=== PATIENT | male | born 1935 | race Caucasian/White ===

== ENCOUNTER 2024-07-13 16:46 | Inpatient (IN) | payer OTHER, SELFPAY ==
[2024-07-13] VITALS (14 sets, daily range): BP systolic 85–125; BP diastolic 53–79; BMI 21.0; BMI 21.2
[2024-07-13 13:22] LABS: Glucose - Point of Care 191 mg/dl (70-99)
[2024-07-13 13:48] LABS: COVID-19 Antigen Negative (Negative)
[2024-07-13 13:49] LABS: % Basophils 0.6 % (0-2); % Eosinophils 0.2 % (0-6); % Immature Granulocytes 0.6 % (0-0.5); % Lymphocytes 7.1 % (20.5-51.1); % Monocytes 6.5 % (1.7-9.3); Absolute Basophils 0.1 10^3/uL (0-0.2); Absolute Immature Granulocytes 0.1 10^3/uL (0-0.05); Absolute Lymphocytes 0.8 10^3/uL (1.2-3.4); Absolute Monocytes 0.8 10^3/uL (0.1-0.6); Absolute Neutrophils 9.9 10^3/uL (1.4-6.5); Hematocrit 36.1 % (39.0-52.0); Mean Corp Hgb Conc. 33.2 g/dL (33.0-37.0); Mean Corpuscular Hgb 26.8 pg (27.0-31.0); Mean Corpuscular Volume 80.8 fL (80.0-94.0); Mean Platelet Volume 10.7 fL (7.4-10.4); Nucleated Red Blood Cells % 0 % (-); Platelet Count 232 10^3/uL (130-400); Red Blood Cell Count 4.47 10^6/uL (4.70-6.10); Red Cell Dist. Width 14.7 % (11.5-14.5); White Blood Cell Count 11.7 10^3/uL (4.8-10.8)
--- NOTE | 2024-07-13 13:53 | ED.GENMED ---
History of Present Illness
General
Chief Complaint: Seizure
Time Seen by Provider: 07/13/24 13:26
History of Present Illness
History of Present Illness:
89-year-old male with history of dementia, hypertension presenting to the emergency department for seizure. Patient arrives with daughter who reports that patient recently went to [facility] yesterday for an x-ray because he has been
having back pain. While in x-ray, had a seizure so was brought to the emergency department. At that time he was found to have a brain mass that was increased in size from 2021. Patient had been admitted to the hospital, also found to be
COVID-positive. Daughter notes that patient was boarding for too long, she was disgruntled with hospital stay, so signed him out AMA and drove him here. Patient had a seizure en route, she called 911, however patient refused ambulance, so she
drove him here. Patient had a seizure while in triage.. Patient postictal, limited historian.
Phy Exam
Physical Exam
Physical Exam:
General: no clinical signs of dehydration, nontoxic and in no acute distress
HEENT: protecting airway
Neck: appears supple
CV: Normal heart rate, regular rhythm
Resp: No accessory muscle use, no increased work of breathing, lungs clear to auscultation bilaterally
Abd: Soft and non-distended, no tenderness to palpation
Extremities: No deformities, no swelling, no erythema
Neuro: alert, coming to, moving all extremities equally
: deferred
Rectal: deferred
Psych: Normal affect
Skin: Intact
Course
Orders/Labs/Results
Orders:
Orders
07/13/24
Electrocardiogram (*1) Stat
Comment: DONE EMR
07/13/24 13:27
CT Head W/o Iv Contrast Urgent
Comment:
Reason For Exam: seizure, hx of brain mass
CR Chest - 2 Views Urgent
Comment:
Reason For Exam: suspected pneumonia
07/13/24 13:29
COVID-19 Antigen Urgent
Source: Nasal Swab
Complete Blood Count/With Diff Urgent
Comprehensive Metabolic Panel Urgent
PTT Urgent
Prothrombin Time Urgent
Troponin I Urgent
07/13/24 13:37
0.9% Sodium Chloride 1000 ml [Nss] 1,000 ml IV BOLUS
07/13/24 13:45
Levetiracetam Injectable [Keppra] 1,000 mg IV NOW STA
07/13/24 13:52
Lorazepam [Ativan] 2 mg IV NOW STA
07/13/24 14:07
0.9% Sodium Chloride [Nss (Preservative Free)] 1 ml IV NOW STA
07/13/24 15:15
Restraints - Violent As Directed
Restraint Type-: Soft Limb-4 point/4 rails
Apply From (date): 07/13/24
Apply from (time): 13:40
Remove (date): 07/13/24
Remove (time): 19:15
07/13/24 15:16
1:1 Observation - Suicide/ Violent Behavior As Directed
Abnormal Lab Results
07/13/24 07/13/24
13:21 13:29
WBC 11.7 H 10^3/uL
(4.8-10.8)
RBC 4.47 L 10^6/uL
(4.70-6.10)
Hgb 12.0 L g/dL
(13.0-18.0)
Hct 36.1 L %
(39.0-52.0)
MCH 26.8 L pg
(27.0-31.0)
RDW 14.7 H %
(11.5-14.5)
MPV 10.7 H fL
(7.4-10.4)
Abs Immat Gran (auto) 0.1 H 10^3/uL
(0-0.05)
Absolute Neuts (auto) 9.9 H 10^3/uL
(1.4-6.5)
Absolute Lymphs (auto) 0.8 L 10^3/uL
(1.2-3.4)
Absolute Monos (auto) 0.8 H 10^3/uL
(0.1-0.6)
Immature Gran % 0.6 H %
(0-0.5)
Neutrophils % 85.0 H %
(42.2-75.2)
Lymphocytes % 7.1 L %
(20.5-51.1)
PT 15.2 H Sec
(11.4-14.6)
Glucose 169 H mg/dl
(70-99)
POC Glucose 191 H mg/dl
(70-99)
07/13/24 13:29
07/13/24 13:29
Vital Signs
Initial and Last Documented VS:
Initial Vital Signs
Temp Pulse Resp BP Pulse Ox
98.1 F 61 10 104/69 94
07/13/24 13:19 07/13/24 13:19 07/13/24 13:19 07/13/24 13:19 07/13/24 13:19
Last Documented Vital Signs
Temp Pulse Resp BP Pulse Ox
98.1 F 61 29 104/59 93
07/13/24 13:19 07/13/24 15:15 07/13/24 15:15 07/13/24 15:15 07/13/24 15:15
MDM/Problems Addressed
MDM/Problems Addressed:
89-year-old male with history of dementia presenting for seizure and concern of a brain mass. Vital signs on arrival significant for low blood pressure.
On exam, patient is coming to, seizure prior to arrival. Per daughter, recent hospitalization yesterday at [employer] for which he was admitted, signed out AMA for seizure with brain mass and COVID. Suspected source of patient's seizure is
brain mass. For this reason we will repeat workup including CT brain, laboratory analysis, COVID swab, chest x-ray imaging. Will administer Keppra for seizure prophylaxis.
14:00 - Patient extremely agitated, grabbing at staff, cursing. Unsuccessful verbal de-escalation. Will administer Ativan
15:40 -CT shows s a mildly heterogeneous focus with associated calcifications along the anteromedial right temporal lobe measuring 1.9 x 1.6 x 1.6 cm which likely represents a lesion and is not definitely extra-axial in location. In discussion with
neurosurgery, advising MRI. Remains hemodynamically stable.
*EKG
Interpreted by ED Provider?: Yes
EKG Intrepretation Date: 07/13/24
EKG Intrepretation Time: 13:57
Interpretation: normal
Comparison EKG: no comparison EKG present
Heart Rate: 74
Rate: normal
Rhythm: sinus
[place]: normal axis
Interval: normal interval
QRS Pattern: normal QRS
Ischemia: no ischemia
*Critical Care Note
Total Time (30-74mins, 75-104mins- exclusive of procedures): 37
comment:
The high probability of a clinically significant, sudden or life threatening deterioration of the neurologic system(s) required my full and direct attention, intervention and personal management. The aggregate critical care time was 37 minutes. This
time is in addition to time spent performing reported procedures but includes the following:
[x] Data Review and interpretation
[x] Patient assessment and monitoring of vital signs
[x] Documentation
[x] Medication orders and management
ED Attending Note
-
Portions of this chart may have been created with voice recognition software.� Occasional wrong word or��sound alike� substitutions may have occurred due to the inherent limitations of voice recognition software.
Discharge Plan
Departure
Patient Disposition: Admit
Date of Disposition: 07/13/24
Time of Disposition: 15:47
Presentation/result/management discussed w/ accepting MD/DO: Hospitalist
Patient with high blood pressure during this ER visit?: No
Condition: Fair
Discharge Problem:
Seizure, Right temporal lobe mass
Referrals:
Doris Mohan DO [Family Provider] -
Interventions
Interventions:
*Risk Screen - Suicide Last Done: 07/13/24 13:19
*General Assessment Last Done: 07/13/24 13:19
*Neglect/Abuse Screening Last Done: 07/13/24 13:19
ED- Fall Risk Assessment Last Done: 07/13/24 13:35
ED- Cardiac Assessment Last Done: 07/13/24 13:35
ED- Neurological Assessment Last Done: 07/13/24 13:35
ED- Pulmonary Assessment Last Done: 07/13/24 13:35
Discharge Date and Time
Print Language: CAMEROONIAN
[2024-07-13 13:56] LABS: ALT (SGPT) 16 U/L (0-50); AST (SGOT) 31 U/L (17-59); Albumin 4.1 g/dl (3.5-5.0); Alkaline Phosphatase 74 U/L (38-126); Blood Urea Nitrogen 18 mg/dl (9-20); Calcium 9.1 mg/dl (8.4-10.2); Carbon Dioxide 22 mmol/L (22-30); Chloride 102 mmol/L (98-107); Estimated Creatinine Clearance 47 ml/min; Glucose 169 mg/dl (70-99); Sodium 138 mmol/L (135-145); Total Bilirubin 0.5 mg/dl (0.2-1.3); Total Protein 6.9 g/dl (6.3-8.2); eGFR > 60.00
[2024-07-13 14:07] LABS: PT 15.2 Sec (11.4-14.6)
[2024-07-13 14:08] LABS: APTT 31.5 Sec (23.4-35.0); Troponin I 0.014 ng/ml
[2024-07-13] MEDS: NSS 1000 IV (14:12)
[2024-07-13] MEDS: ATIVAN 2 MG IV (14:12)
[2024-07-13] MEDS: KEPPRA 1000 MG IV ×2 (14:13→20:42)
--- NOTE | 2024-07-13 16:28 | HPS.HSE ---
Family Physician
-
Family Physician: Doris Mohan DO
Chief Complaint
-
Seizure
History of Present Illness
Patient is an 89 y/o male past medical history of coronary artery disease, and cognitive impairment who presents following a seizure. Patient is currently sedated following Ativan given in the emergency department. History is obtained from
patient's daughter at the bedside. Patient was at [facility] yesterday to obtain an outpatient x-ray where he had an apparent seizure in the waiting room. He was brought to [place] ED and work-up revealed a brain mass. Plan was
for him to get an MRI but patient's daughter signed him out AMA and brought him here. Patient had an other seizure en route to [facility], and had another seizure while in triage. Daughter denies any prior history of seizure.
Medical History
Past Medical History
Past Medical History: Reports Other
Additional Past Medical History:
Coronary Artery Disease s/p Stent
Essential Hypertension
Hyperlipidemia
Cognitive Impairment
Past Surgical History: Reports Other
Additional Past Surgical History:
Cardiac Stent
Social History
Unable to obtain full social history at this time due to: Patient Non-verbal
Family History
Family History: Unable to Obtain
Allergies / Home Medications
Allergies reflects when Allergies were last updated in [facility].
Home Medications with original date entered in [facility]
Allergy/Medication List:
Allergies
Allergy/AdvReac Type Severity Reaction Status Date / Time
No Known Allergies Allergy Unverified 07/13/24 14:05
Home Medications
aspirin 81 mg tablet,delayed release 81 mg PO DAILY 07/13/24
donepezil 10 mg tablet 10 mg PO HS 07/13/24
isosorbide mononitrate 30 mg tablet,extended release 24 hr 30 mg PO DAILY 07/13/24
metoprolol succinate 25 mg tablet,extended release 24 hr 25 mg PO DAILY 07/13/24
simvastatin 40 mg tablet 40 mg PO HS 07/13/24
Review of Systems
-
Unable to obtain full review of systems at this time due to: Patient Non-verbal
Physical Exam
Vital Signs
Vital Signs
Temp Pulse Resp BP Pulse Ox
98.1 F 61 29 104/59 93
07/13/24 13:19 07/13/24 15:15 07/13/24 15:15 07/13/24 15:15 07/13/24 15:15
Physical Exam
General: Well Developed and Well Nourished
HEENT: NormoCephalic, Moist mucous membranes and Atraumatic
Respiratory: Clear and Non Labored Respirations
Cardiac: S1/S2 and Regular Rhythm
GI: Soft and Non Tender
Musculoskeletal: No Clubbing, No Cyanosis and No Edema
Skin: Warm and Dry
Neuro: Sedated (Patient given 2mg Ativan in ED and he is now unable to participate in neurologic evaluation)
Psych: Calm
Laboratory Results
-
07/13/24 13:29
07/13/24 13:29
Laboratory Results
PT 15.2 Sec (11.4-14.6) H 07/13/24 13:29
INR 1.20 07/13/24 13:29
APTT 31.5 Sec (23.4-35.0) 07/13/24 13:29
Total Bilirubin 0.5 mg/dl (0.2-1.3) 07/13/24 13:29
AST 31 U/L (17-59) 07/13/24 13:29
ALT 16 U/L (0-50) 07/13/24 13:29
Alkaline Phosphatase 74 U/L (38-126) 07/13/24 13:29
Troponin I 0.014 ng/ml 07/13/24 13:[address]:
There is a 1.5 x 1.2 x 1.4 cm partially calcified, extra-axial lesion along the right sphenoid as well as a 1.5 x 0.6 cm sessile, partially calcified extra-axial lesion along the right parietal which likely represent meningiomas.
There is a mildly heterogeneous focus with associated calcifications along the anteromedial right temporal lobe measuring 1.9 x 1.6 x 1.6 cm which likely represents a lesion and is not definitely extra-axial in location. Recommend neurosurgical
evaluation and MRI for further evaluation if not previously evaluated.
Data Reviewed
-
CT Scan: Report Reviewed by me
Lab Data: Labs Reviewed by me
Impression/Plan
-
Provoked Seizure secondary to Brain Mass
-Consult Neurology and Neurosurgery
-Check Brain MRI with and without contrast
-Continue Keppra 1000mg BID
-Continue Seizure Precautions
-Continue NPO for safety until fully awake
Coronary Artery Disease s/p Stent
-Resume aspirin and nitrates when able
Essential Hypertension
-Metoprolol on hold
-Monitor BP
Hyperlipidemia
-Resume statin when able
Cognitive Impairment
-Monitor for mood/behavior changes during hospitalization
DVT proph: SCDs
Code Status: Full Code
--- NOTE | 2024-07-13 16:41 | W.PN.UPDATE ---
Update Note
Progress Note Update
This note serves as an addendum to the H&P by coremaking machine operator UCHE Missy NASSAR
HPI
89M [facility] Res HX Dementia HX Brain mass with increased size since 2021 , had Sz yesterday while at XR for back pain at [facility] , ended up at [facility] had HCT . When [facility] ER comapred with HCT from [facility] in 2021
report Brain mass with increased size Sz . daughter felt too long wait at [facility] for Brain MRI Daughter signed out AMA from [facility] pat[facility] o ER. While en route develoved another episode of Sz ( suddeny went limp
and unresponsive /change if level of conciousness) She stopped roadside , called 911 and EMS transport patient to ER.
VSS stable
Agitated while placing F cath requied IV Ativan 2 mg
Remain post ictal or sedated S/P IV Ativan for presumed Sz
Protecting AW
Symmetric movements of both LExs
Laboratory Tests
07/13/24
13:29
WBC 11.7 H
Hgb 12.0 L
Creatinine 1.0
eGFR > 60.00
Glucose 169 H
Troponin I 0.014
SARS-CoV-2 Antigen Negative
Unenhanced HCT
mildly heterogeneous focus with associated calcifications along the anteromedial right temporal lobe measuring 1.9 x 1.6 x 1.6 cm which likely represents a lesion and is not definitely extra-axial in location.
ASSESSMENT & PLAN
No prior admission or ER visit to
New onset provoked Sz asso with post ictal agitation
Underlying Brain mass along the anteromedial right temporal lobe
Sedated s/p IV ativan
Protecting AW
- agree with IV Keppra 1000 mg BID
- IV Ativan PRN for break thru Sz
- NPO and IVF for aspiration precaution
- Neuro Surg indicate to get Santy MRI and observe at
- Neuro consult for provoked Sz
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
HX CAD with stents
- Holding ASA, Metoprolol and IMN
HLD
- Hold Statin due to depressed mentation
DVT Px: SCD
Full code
IP TLM
--- NOTE | 2024-07-13 17:38 | CON.NEURO ---
Consultation
Order
Date of Consultation: 07/13/24
Requesting Provider: Alessandra Napoles PA-C
Reason for Consult: seizures
HPI: The patient's daughter reports that Mr. Lockett has been experiencing back pain for approximately three weeks. The pain was significant enough for the patient to visit his primary care physician, who ordered an x-ray. During the wait for the
x-ray, the patient experienced an episode described as agitation, groaning, and drooling. The patient was subsequently taken to the emergency room.
He was seen at [facility] ER and was found increase in size previously known calcified mass lesion, compared to March 2022. The family decided to transfer his care and the patient experienced another seizure-like episode in the car on the way to the current
visit.
The patient's daughter also reports that her father has been forgetful. He has had intermitted behavioral changes(can be belligerent) over the last several months and has been taking donepezil. In the past month and a half, she has occasionally not
recognized his daughter.
ER VS: 104/69- 85/54, 61, afebrile
EKG: sinus arrhythmia, QTc Int : 472 ms
PDMP: none
Labs: gluc 191, WBC 11.7, Hb 12.0, normal Na, Cr
MAR: Lorazepam 2 mg IV at 14:12, Keppra 1g IV once
CT head-1.5 x 1.2 x 1.4 cm partially calcified, extra-axial lesion along the right sphenoid as well as a 1.5 x 0.6 cm sessile, partially calcified extra-axial lesion along the right parietal which likely represent meningiomas.
There is a mildly heterogeneous focus with associated calcifications along the anteromedial right temporal lobe measuring 1.9 x 1.6 x 1.6 cm which likely represents a lesion and is not definitely extra-axial in location.
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
PSH: PTCI, hernia repair
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
FH:mother-stroke; brother-brain tumor
All:NKDA
ROS: Positive for back pain, seizure
General: Well developed. In no acute distress.
Cardio: Regular rate. Extremities are without cyanosis or edema.
Neuro:
Mental Status: Lethargic, moans to sternal rub. Does not follow requests.
Cranial Nerves: Resists eye opening. Orthophoric primary gaze. Pupils are equally round and reactive to light. Face symmetric.
Motor: Increased motor tone in UE/LE, moves all limbs within balance. No clonus.
Reflexes: Plantar response�mute BL
Sensory: Unable to assess due to mental status
Coordination: No tremors or myoclonic movements
Gait: deferred
Assessment and Plan:
I. Seizure cluster.
II. Multifactorial encephalopathy(post ictal, toxic, neurodegenerative)
III. 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
-Telemetry monitoring
-Seizure precaution
-Continue Keppra 500 mg twice daily
-Please check magnesium, CK, urinalysis
-Brain MRI with cardiology
-Routine EEG
-The case was discussed with patient's daughter
I personally reviewed all radiology and labs along with past medical records pertinent to current medical problems. Total time spent in patient care is 60 minutes.
Thank you for allowing us to participate in the care of this patient. We will continue to follow. Please do not hesitate to contact us with any questions or concerns.
Subjective/Objective
Subjective Data
Date of Service: July 13, 2024
Objective Data
Vital Signs
Temp Pulse Resp BP Pulse Ox
36.7 C 60 18 104/64 94
07/13/24 13:19 07/13/24 15:45 07/13/24 15:45 07/13/24 15:45 07/13/24 15:45
Lab Results
07/13/24 13:29
07/13/24 13:29
PT 15.2 Sec (11.4-14.6) H 07/13/24 13:29
INR 1.20 07/13/24 13:29
APTT 31.5 Sec (23.4-35.0) 07/13/24 13:29
Sodium 138 mmol/L (135-145) 07/13/24 13:29
Potassium 4.0 mmol/L (3.5-5.1) 07/13/24 13:
BUN 18 mg/dl (9-20) 07/13/24 13:29
Glucose 169 mg/dl (70-99) H 07/13/24 13:29
Calcium 9.1 mg/dl (8.4-10.2) 07/13/24 13:
Patient Allergies
No Known Allergies Allergy (Unverified 07/13/24 14:05)
Medications
-
Home Medications
�Medication �Instructions �Recorded
aspirin 81 mg tablet,delayed 81 mg PO DAILY 07/13/24
release
donepezil 10 mg tablet 10 mg PO HS 07/13/24
isosorbide mononitrate 30 mg 30 mg PO DAILY 07/13/24
tablet,extended release 24 hr
metoprolol succinate 25 mg 25 mg PO DAILY 07/13/24
tablet,extended release 24 hr
simvastatin 40 mg tablet 40 mg PO HS 07/13/24
Vital Signs and Labs
-
Vital Signs and Labs:
Vital Signs
Temp Pulse Resp BP Pulse Ox
36.7 C 60 18 104/64 94
07/13/24 13:19 07/13/24 15:45 07/13/24 15:45 07/13/24 15:45 07/13/24 15:45
Lab Results
07/13/24 13:29
07/13/24 13:29
PT 15.2 Sec (11.4-14.6) H 07/13/24 13:29
INR 1.20 07/13/24 13:29
APTT 31.5 Sec (23.4-35.0) 07/13/24 13:29
Sodium 138 mmol/L (135-145) 07/13/24 13:29
Potassium 4.0 mmol/L (3.5-5.1) 07/13/24 13:29
BUN 18 mg/dl (9-20) 07/13/24 13:29
Glucose 169 mg/dl (70-99) H 07/13/24 13:29
Calcium 9.1 mg/dl (8.4-10.2) 07/13/24 13:29
Medications
-
Medications:
Generic Name Dose Route Start Last Admin
Trade Name Freq PRN Reason Stop Dose Admin
Acetaminophen 650 mg 07/13/24 17:44
Acetaminophen 325 Mg Tablet PO 08/10/24 17:43
Q4HPRN PRN
mild pain/ fever>100.5F
Dextrose/Sodium Chloride 1,000 mls @ 80 mls/hr 07/13/24 17:44
D5/0.45%Nacl IV 07/14/24 06:13
.[id number] JENNIFER
Levetiracetam 1,000 mg 07/13/24 20:00
Levetiracetam (100 Mg/Ml) 500 Mg/5 Ml Vial IV 08/10/24 19:59
Q12 JENNIFER
Lorazepam 1 mg 07/13/24 17:44
Lorazepam 2 Mg/Ml Vial IV 08/10/24 17:43
Q4HPRN PRN
seizure
Sodium Chloride 0 flush 07/13/24 18:00
Sodium Chloride 0.9% (Flush) Syringe IV 08/10/24 17:59
PER PROTOCOL JENNIFER
Sodium Chloride 0.5 ml 07/13/24 17:48
Nss (Pf) 10 Ml Vial For Ativan 1 Mg Dose IV 08/10/24 17:47
Q4HPRN PRN
IV LORAZEPAM DILUTION
Home Medications
-
Home Medications
aspirin 81 mg tablet,delayed release 81 mg PO DAILY 07/13/24
donepezil 10 mg tablet 10 mg PO HS 07/13/24
isosorbide mononitrate 30 mg tablet,extended release 24 hr 30 mg PO DAILY 07/13/24
metoprolol succinate 25 mg tablet,extended release 24 hr 25 mg PO DAILY 07/13/24
simvastatin 40 mg tablet 40 mg PO HS 07/13/24
[2024-07-13] MEDS: D5/0.45%NACL 1000 IV (18:18)
[2024-07-13 20:16] LABS: Creatine Phosphokinase 297 U/L (55-170); Magnesium 1.9 mg/dl (1.6-2.3)
--- NOTE | 2024-07-13 20:30 | PTCARENOTE ---
Pt received from ED at 1930. Pt A&OX2, drowsy, VSS, and daughter present in room able to answer admission questions for pt. Pt presented with bloody skin tear on R forearm, Kerlix and foam allied. Pt on seizure precautions, pillows and padding
applied to bed rails. Pt and daughter informed on importance to use call wang, pt and daughter relayed understanding and cooperation. Will continue with current plan of care.
[2024-07-14 03:32] VITALS: BP 141/59
[2024-07-14 05:59] VITALS: BMI 20.7
[2024-07-14 07:50] VITALS: BP 140/83
[2024-07-14 08:23] LABS: Hemoglobin 10.2 g/dL (13.0-18.0); Mean Corp Hgb Conc. 32.9 g/dL (33.0-37.0); Mean Corpuscular Hgb 26.6 pg (27.0-31.0); Mean Corpuscular Volume 80.7 fL (80.0-94.0); Mean Platelet Volume 11.4 fL (7.4-10.4); Platelet Count 194 10^3/uL (130-400); Red Blood Cell Count 3.84 10^6/uL (4.70-6.10); Red Cell Dist. Width 14.9 % (11.5-14.5); White Blood Cell Count 8.4 10^3/uL (4.8-10.8)
[2024-07-14] MEDS: KEPPRA 1000 MG IV ×2 (09:03→19:26)
[2024-07-14 09:07] LABS: Blood Urea Nitrogen 19 mg/dl (9-20); Calcium 8.8 mg/dl (8.4-10.2); Carbon Dioxide 20 mmol/L (22-30); Chloride 106 mmol/L (98-107); Estimated Creatinine Clearance 56 ml/min; Glucose 85 mg/dl (70-99); Potassium 3.6 mmol/L (3.5-5.1); Sodium 140 mmol/L (135-145); eGFR > 60.00
[2024-07-14 09:09] VITALS: BP 140/83; PULSE 66; O2SAT 93; O2SAT 95
--- NOTE | 2024-07-14 10:14 | W.PN.NEURO.1 ---
Today's Communication / Plan
-
.
Subjective/Objective
Subjective Data
Date of Service: July 14, 2024
Neurology follow-up note.
No acute events overnight. Afebrile. No recurrent reported or documented seizures.
Brain MRI-pending.
Labs: CK 297, mg 1.9
Routine EEG(07/14/2024)-generalized slowing, no epileptiform abnormalities.
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
PSH: PTCI, hernia repair
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
FH:mother-stroke; brother-brain tumor
All:NKDA
ROS: Positive for back pain, seizure
General: Well developed. In no acute distress.
Cardio: Regular rate. Extremities are without cyanosis or edema.
Neuro:
Mental Status: Stuporous, opens eyes briefly. Does not attend, oriented to name only. Does not follow requests.
Cranial Nerves: Resists eye opening. Orthophoric primary gaze. Pupils are equally round and reactive to light. Face symmetric.
Motor: Increased motor tone in UE/LE, moves all limbs within bedplane. No clonus.
Reflexes: Plantar response�mute BL
Coordination: No tremors or myoclonic movements
Gait: deferred
Assessment and Plan:
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
II. Multifactorial encephalopathy(post ictal, toxic, neurodegenerative), minimally improved
III. 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
-Telemetry monitoring
-Seizure precaution
-Continue Keppra 500 mg twice daily
-Please check urinalysis
-Brain MRI with felice
I personally reviewed all radiology and labs along with past medical records pertinent to current medical problems. Total time spent in patient care is 40 minutes.
Thank you for allowing us to participate in the care of this patient. We will continue to follow. Please do not hesitate to contact us with any questions or concerns.
Objective Data
Vital Signs
Temp Pulse Resp BP Pulse Ox
36.4 C 56 18 140/83 95
07/14/24 07:50 07/14/24 07:50 07/14/24 07:50 07/14/24 07:50 07/14/24 07:50
Lab Results
07/14/24 07:12
07/14/24 07:12
PT 15.2 Sec (11.4-14.6) H 07/13/24 13:29
INR 1.20 07/13/24 13:29
APTT 31.5 Sec (23.4-35.0) 07/13/24 13:29
Sodium 140 mmol/L (135-145) 07/14/24 07:12
Potassium 3.6 mmol/L (3.5-5.1) 07/14/24 07:12
BUN 19 mg/dl (9-20) 07/14/24 07:12
Glucose 85 mg/dl (70-99) 07/14/24 07:12
Calcium 8.8 mg/dl (8.4-10.2) 07/14/24 07:12
Patient Allergies
No Known Allergies Allergy (Unverified 07/13/24 14:05)
Vital Signs and Labs
-
Vital Signs and Labs:
Vital Signs
Temp Pulse Resp BP Pulse Ox
36.4 C 56 18 140/83 95
07/14/24 07:50 07/14/24 07:50 07/14/24 07:50 07/14/24 07:50 07/14/24 07:50
Lab Results
07/14/24 07:12
07/14/24 07:12
PT 15.2 Sec (11.4-14.6) H 07/13/24 13:29
INR 1.20 07/13/24 13:29
APTT 31.5 Sec (23.4-35.0) 07/13/24 13:29
Sodium 140 mmol/L (135-145) 07/14/24 07:12
Potassium 3.6 mmol/L (3.5-5.1) 07/14/24 07:12
BUN 19 mg/dl (9-20) 07/14/24 07:12
Glucose 85 mg/dl (70-99) 07/14/24 07:12
Calcium 8.8 mg/dl (8.4-10.2) 07/14/24 07:12
Medications
-
Medications:
Generic Name Dose Route Start Last Admin
Trade Name Freq PRN Reason Stop Dose Admin
Acetaminophen 650 mg 07/13/24 17:44
Acetaminophen 325 Mg Tablet PO 08/10/24 17:43
Q4HPRN PRN
mild pain/ fever>100.5F
Levetiracetam 1,000 mg 07/13/24 20:00 07/14/24 09:03
Levetiracetam (100 Mg/Ml) 500 Mg/5 Ml Vial IV 08/10/24 19:59 1,000 mg
Q12 JENNIFER Administration
Lorazepam 1 mg 07/13/24 17:44
Lorazepam 2 Mg/Ml Vial IV 08/10/24 17:43
Q4HPRN PRN
seizure
Sodium Chloride 0 flush 07/13/24 18:00
Sodium Chloride 0.9% (Flush) Syringe IV 08/10/24 17:59
PER PROTOCOL JENNIFER
Sodium Chloride 0.5 ml 07/13/24 17:48
Nss (Pf) 10 Ml Vial For Ativan 1 Mg Dose IV 08/10/24 17:47
Q4HPRN PRN
IV LORAZEPAM DILUTION
Home Medications
-
Home Medications
aspirin 81 mg tablet,delayed release 81 mg PO DAILY Blood Clot Prevention/Tx 07/13/24
donepezil 10 mg tablet 10 mg PO HS Mental Health/Anxiety 07/13/24
isosorbide mononitrate 30 mg tablet,extended release 24 hr 30 mg PO DAILY Blood Pressure 07/13/24
metoprolol succinate 25 mg tablet,extended release 24 hr 25 mg PO DAILY Heart Disease/Condition 07/13/24
simvastatin 40 mg tablet 40 mg PO HS High Cholesterol 07/13/24
--- NOTE | 2024-07-14 10:29 | EEGC.RPT ---
Continuous EEG Report
Report
�TECHNICAL REMARKS:��This is a technically satisfactory eighteen channel record employing 21 disc electrodes applied according to a measured international 10-20 electrode placement system.��There were no significant technical difficulties.��The
study was done on a [employer] System.
�
CLINICAL HISTORY: This is an 89 year man with encephalopathy.� This study was requested to look for epileptiform abnormalities.
MEDS: Bony
STUDY DURATION:�27 min,�39 secs
REPORT: �At the onset of the EEG, the patient is in altered mental status. The background activity consists of 5-6.5 Hz, impersistent, posteriorly dominant, moderate amplitude, symmetric, and rhythmic activity. Continuous generalized, 2-3 Hz, 30-50
uV at times sharply contoured polymorphic delta activity was seen.� Stepwise intermittent photic stimulation did not induce additional abnormalities. Hyperventilation was not performed. Drowsiness is characterized by low amplitude mixed frequency
activity, decreased eye blinking, and muscle artifact. No epileptiform activity was seen.
�
IMPRESSION: �This is an abnormal EEG recorded in altered mental status due to a moderate-to severe generalized slowing. This finding indicates diffuse cerebral dysfunction, nonspecific in terms of etiology.�
[2024-07-14 12:31] VITALS: BP 144/84
--- NOTE | 2024-07-14 12:58 | CM ---
Patient sleepy, daughter, Ilda at bedside, per patient's daughter patient lives at [facility] on the 2nd floor, building has an elevator, patient was independent with adl's and ambulation, patient would go to dining room for
meals, per daughter, patient's spouse has memory deficits and requires help from patient, patient uses not use any dme.
PCP: Doris Mohan
Pharmacy: [facility] [phone]
Plan; To follow with patient progress.
[2024-07-14 13:23] LABS: Urine Albumin Negative (Neg - Trace); Urine Bilirubin Negative (Negative); Urine Character Clear (Clear); Urine Color Yellow; Urine Glucose Negative (Negative); Urine Ketone Trace (Negative); Urine Leukocyte Negative (Negative); Urine Nitrite Negative (Negative); Urine Occult Blood Negative (Negative); Urine Urobilinogen Negative (Neg - 1+)
--- NOTE | 2024-07-14 14:00 | PTOTSP ---
Speech Therapy Swallowing Assessment
Elevated risk for aspiration given lethargic state. One instance of prolonged coughing at end of session likely related to large volume sip that patient then swished in mouth and segmented into multiple swallows. Remaining trials of thin liquids
tolerated without overt signs of aspiration.
Recommend
1. Begin Regular solids and thin liquids.
2. Meds whole in applesauce.
3. Aspiration Precautions.
4. Will monitor patient tolerance and determine need for VSE and/or diet modifications
--- NOTE | 2024-07-14 15:31 | W.PN.HOSP.TC ---
Today's Communication/Plan
-
See plan
Assessment / Plan
Assessment / Plan
Impression:
Focal epilepsy.
Protracted encephalopathy, suspect postictal state.
Right parietal and temporal mass probably meningioma.
Conditions prior to admission:
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
CAD with history of stents.
Dyslipidemia.
Plan:
Focal epilepsy with multiple seizures over the last 24 hours.
Protracted encephalopathy suspect postictal state
EEG with diffuse slowing with no evidence of epileptic activity.
MRI of the brain:
No acute intracranial infarction.
There are 4 extra-axial, enhancing lesions which are likely meningiomas. The largest measures 3.1 x 2.9 x 1.8 cm along the right anterior temporal fossa and demonstrates mass effect on adjacent anterior right temporal lobe. The additional lesions do
not demonstrate significant mass effect.
Initiated on Keppra dose to be adjusted as per neurology
Continue seizure precautions
Neurosurgery/neurology consultation
Afebrile and hemodynamically stable with no clinical evidence of infection.
Chest x-ray with no abnormalities.
Urinalysis not suggestive of infection.
Speech and swallow evaluation recommends regular diet with thin liquids with aspiration precautions. Monitor closely.
CAD
Continue metoprolol, Imdur.
Holding aspirin acutely.
Dyslipidemia on statin
Dementia Alzheimer's type. 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
Physical therapy assessment as mental status allows.
Anticipated Discharge: 24 - 48 hours
Subjective/Interval History
-
Date of Service: July 14, 2024
Objective Data
-
Labs:
Laboratory Results
07/14/24
07:12
WBC 8.4
Hgb 10.2 L
Hct 31.0 L
Plt Count 194
Sodium 140
Potassium 3.6
Chloride 106
Carbon Dioxide 20 L
BUN 19
Creatinine 0.8
Glucose 85
Calcium 8.8
Vital Signs:
Vital Signs
Temp Pulse Resp BP Pulse Ox
98.5 F 52 18 144/84 95
07/14/24 12:31 07/14/24 12:31 07/14/24 12:31 07/14/24 12:31 07/14/24 12:31
I&O
07/13/24 07/14/24 07/15/24
06:59 06:59 06:59
Intake Total 500 / 500
Balance 500 / 500
Physical Exam
-
General: Well Developed and No Apparent Distress
HEENT: Normocephalic, Atraumatic and Moist Mucous Membranes
Respiratory: Clear to Auscultation
Cardiac: Regular Rhythm and S1/S2; Negative Murmur, Rub or Gallop
GI: Soft, Nontender, Nondistended and Normal Bowel Sounds; Negative Organomegaly
Rectal: Deferred by Provider
Musculoskeletal: No Clubbing, No Cyanosis and No Edema
Skin: Negative Rash
Neuro: Nonfocal/Grossly Intact and Other (Lethargic, although awakes with conversation and following simple commands.)
[2024-07-14 15:39] VITALS: BP 163/87
[2024-07-14 19:56] VITALS: BP 134/74
[2024-07-15 00:13] VITALS: BP 131/74
[2024-07-15 04:20] VITALS: BP 116/66
[2024-07-15 07:40] VITALS: BP 124/77
[2024-07-15 08:12] LABS: % Eosinophils 2.3 % (0-6); % Immature Granulocytes 0.4 % (0-0.5); % Lymphocytes 13.3 % (20.5-51.1); Absolute Basophils 0.1 10^3/uL (0-0.2); Absolute Eosinophils 0.2 10^3/uL (0-0.7); Absolute Monocytes 0.6 10^3/uL (0.1-0.6); Absolute Neutrophils 5.8 10^3/uL (1.4-6.5); Hematocrit 33.6 % (39.0-52.0); Hemoglobin 11.2 g/dL (13.0-18.0); Mean Corp Hgb Conc. 33.3 g/dL (33.0-37.0); Mean Platelet Volume 11.2 fL (7.4-10.4); Nucleated Red Blood Cells % 0 % (-); Platelet Count 203 10^3/uL (130-400); Red Blood Cell Count 4.15 10^6/uL (4.70-6.10); Red Cell Dist. Width 15.1 % (11.5-14.5); White Blood Cell Count 7.7 10^3/uL (4.8-10.8)
[2024-07-15] MEDS: TOPROL XL 25 MG PO (08:29)
[2024-07-15] MEDS: ASPIR LOW (ENTERIC COATED) 81 MG PO (08:29)
[2024-07-15] MEDS: IMDUR (EXTENDED RELEASE) 30 MG PO (08:30)
[2024-07-15 08:35] LABS: Blood Urea Nitrogen 20 mg/dl (9-20); Calcium 8.7 mg/dl (8.4-10.2); Carbon Dioxide 21 mmol/L (22-30); Chloride 107 mmol/L (98-107); Estimated Creatinine Clearance 50 ml/min; Glucose 103 mg/dl (70-99); Potassium 3.9 mmol/L (3.5-5.1); Sodium 142 mmol/L (135-145); eGFR > 60.00
[2024-07-15] MEDS: KEPPRA 1000 MG IV (08:51)
--- NOTE | 2024-07-15 10:36 | W.PN.NEURO.1 ---
Today's Communication / Plan
-
.
Subjective/Objective
Subjective Data
Date of Service: July 15, 2024
Neurology follow-up note.
24-hour events. Significant improvement of encephalopathy. No reports of seizures. Mr. Lockett reports no complaints. According to patient's daughter he is close to his cognitive baseline.
Brain MRI -4 extra-axial, enhancing lesions which are likely meningiomas. The largest measures 3.1 x 2.9 x 1.8 cm along the right anterior temporal fossa and demonstrates mass effect on adjacent anterior right temporal lobe.
Labs: CK 297, mg 1.9
Routine EEG(07/14/2024)-generalized slowing, no epileptiform abnormalities.
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
PSH: PTCI, hernia repair
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
FH:mother-stroke; brother-brain tumor
All:NKDA
ROS: Positive for back pain, seizure
General: Well developed. In no acute distress.
Cardio: Regular rate. Extremities are without cyanosis or edema.
Neuro:
Mental Status: Awake, oriented to name, person. 'In my 90s '. Did not know the month, year. Poor attention and increased processing time. Follows simple requests. Perseverates
Cranial Nerves: Orthophoric primary gaze. Pupils are equally round and reactive to light. Blink to threat bilaterally face symmetric.
Motor: Increased motor tone in UE/LE, moves all limbs within bedplane. No clonus.
Reflexes: Plantar response�mute BL
Coordination: No tremors or myoclonic movements
Gait: deferred
Assessment and Plan:
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
II. Multifactorial encephalopathy(post ictal, toxic, neurodegenerative), clinically improved
III. Multiple probable meningiomas with the largest along the right anterior temporal fossa with mass effect on anterior right temporal lobe.
-Telemetry monitoring
-Seizure precaution
-Continue Keppra 500 mg twice daily
-Dexamethasone 2 mg TID for 1 week with GI prophylaxis
-repeat brain MRI with felice in 6 months.
-Neurosurgery follow-up
-OP Neurology follow up in 2-3 weeks
I personally reviewed all radiology and labs along with past medical records pertinent to current medical problems. Total time spent in patient care is 34 minutes.
Thank you for allowing us to participate in the care of this patient. We will continue to follow. Please do not hesitate to contact us with any questions or concerns.
Objective Data
Vital Signs
Temp Pulse Resp BP Pulse Ox
36.5 C 62 16 124/77 96
07/15/24 07:40 07/15/24 07:40 07/15/24 07:40 07/15/24 08:29 07/15/24 07:40
Lab Results
07/15/24 06:58
07/15/24 06:58
PT 15.2 Sec (11.4-14.6) H 07/13/24 13:29
INR 1.20 07/13/24 13:29
APTT 31.5 Sec (23.4-35.0) 07/13/24 13:29
Sodium 142 mmol/L (135-145) 07/15/24 06:58
Potassium 3.9 mmol/L (3.5-5.1) 07/15/24 06:58
BUN 20 mg/dl (9-20) 07/15/24 06:58
Glucose 103 mg/dl (70-99) H 07/15/24 06:58
Calcium 8.7 mg/dl (8.4-10.2) 07/15/24 06:58
Patient Allergies
No Known Allergies Allergy (Unverified 07/13/24 14:05)
Vital Signs and Labs
-
Vital Signs and Labs:
Vital Signs
Temp Pulse Resp BP Pulse Ox
36.5 C 62 16 124/77 96
07/15/24 07:40 07/15/24 07:40 07/15/24 07:40 07/15/24 08:29 07/15/24 07:40
Lab Results
07/15/24 06:58
07/15/24 06:58
PT 15.2 Sec (11.4-14.6) H 07/13/24 13:29
INR 1.20 07/13/24 13:29
APTT 31.5 Sec (23.4-35.0) 07/13/24 13:29
Sodium 142 mmol/L (135-145) 07/15/24 06:58
Potassium 3.9 mmol/L (3.5-5.1) 07/15/24 06:58
BUN 20 mg/dl (9-20) 07/15/24 06:58
Glucose 103 mg/dl (70-99) H 07/15/24 06:58
Calcium 8.7 mg/dl (8.4-10.2) 07/15/24 06:58
Medications
-
Medications:
Generic Name Dose Route Start Last Admin
Trade Name Freq PRN Reason Stop Dose Admin
Acetaminophen 650 mg 07/13/24 17:44
Acetaminophen 325 Mg Tablet PO 08/10/24 17:43
Q4HPRN PRN
mild pain/ fever>100.5F
Aspirin 81 mg 07/15/24 08:00 07/15/24 08:29
Aspirin 81 Mg (Enteric Coated) Tablet PO 08/12/24 07:59 81 mg
DAILY JENNIFER Administration
Atorvastatin Calcium 20 mg 07/14/24 22:00 07/14/24 21:41
Atorvastatin (Lipitor) 20 Mg Tablet PO 08/11/24 21:59 Not Given
HS JENNIFER
Dexamethasone 2 mg 07/15/24 16:00
Dexamethasone 2 Mg Tablet PO 08/12/24 15:59
TID JENNIFER
Donepezil HCl 10 mg 07/14/24 22:00 07/14/24 21:41
Donepezil Hcl 10 Mg Tablet PO 08/11/24 21:59 Not Given
HS JENNIFER
Isosorbide Mononitrate 30 mg 07/15/24 08:00 07/15/24 08:30
Isosorbide Mononitrate 30 Mg Extended Release Tablet PO 08/12/24 07:59 30 mg
DAILY JENNIFER Administration
Levetiracetam 500 mg 07/15/24 20:00
Levetiracetam 500 Mg Regular Release Tablet PO 08/12/24 19:59
BID JENNIFER
Lorazepam 1 mg 07/13/24 17:44
Lorazepam 2 Mg/Ml Vial IV 08/10/24 17:43
Q4HPRN PRN
seizure
Metoprolol Succinate 25 mg 07/15/24 08:00 07/15/24 08:29
Metoprolol 25 Mg Extended Release Tablet PO 08/12/24 07:59 25 mg
DAILY JENNIFER Administration
Sodium Chloride 0 flush 07/13/24 18:00
Sodium Chloride 0.9% (Flush) Syringe IV 08/10/24 17:59
PER PROTOCOL JENNIFER
Sodium Chloride 0.5 ml 07/13/24 17:48
Nss (Pf) 10 Ml Vial For Ativan 1 Mg Dose IV 08/10/24 17:47
Q4HPRN PRN
IV LORAZEPAM DILUTION
Home Medications
-
Home Medications
aspirin 81 mg tablet,delayed release 81 mg PO DAILY Blood Clot Prevention/Tx 07/13/24
donepezil 10 mg tablet 10 mg PO HS Mental Health/Anxiety 07/13/24
isosorbide mononitrate 30 mg tablet,extended release 24 hr 30 mg PO DAILY Blood Pressure 07/13/24
metoprolol succinate 25 mg tablet,extended release 24 hr 25 mg PO DAILY Heart Disease/Condition 07/13/24
simvastatin 40 mg tablet 40 mg PO HS High Cholesterol 07/13/24
--- NOTE | 2024-07-15 10:40 | CM ---
Addendum entered by Ashley Sanz 07/15/24 10:53:
[facility]
[phone]

Addendum entered by Ashley Sanz 07/15/24 10:46:
[facility]
Report [phone]

Original Note:
manager account management continues to follow with patient progress notes and plan is for patient to return to [facility], director case reached out to [facility] and patient is in there assisted living not independent living, patient did not have any dme, and
patient's daughter at bedside feels patient may benefit from a walker, will await PT/OT evaluation.
Plan: Per daughter patient to return to [facility] in [place] when stable, daughter agreeable to visiting nurses, options reviewed and referral sent to [facility].
[2024-07-15 11:49] VITALS: BP 133/83
--- NOTE | 2024-07-15 12:17 | PTOTSP ---
Video Swallow Examination:
Pt presents with mild oropharyngeal dysphagia as characterized by impaired mastication/bolus formation and transfer, decreased oral control and containment of thin liquids, delayed swallow initiation, and oral stasis that results in pooling of
liquids in the pharynx/vallecula. No aspiration occurred during the study, however 1 instance of penetration with mildly thick liquids via straw.
Recommend:
1. Continue IDDSI Level 7 (regular) and thin liquids via small singe sips
2. Medications whole in puree
3. Aspiration precautions including remaining upright during oral intake, small bites/sips, slow rate
4. Continued ST at the acute care level
--- NOTE | 2024-07-15 12:52 | W.DS.TRANS ---
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
-
Discharge Instructions:
Discharge Diagnosis/Procedures Impression:
Focal epilepsy.
Protracted encephalopathy, suspect postictal
state.
Right parietal and temporal mass probably
meningioma.
Conditions prior to admission:
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
CAD with history of stents.
Dyslipidemia.
Diet Regular
Instructions:
Stand-Alone Forms:
Changes to Home Medications: Yes
Discharge Medications:
DC Medications w/original date entered in [facility]
aspirin 81 mg tablet,delayed release 81 mg PO DAILY Blood Clot Prevention/Tx 07/13/24
donepezil 10 mg tablet 10 mg PO HS Mental Health/Anxiety 07/13/24
isosorbide mononitrate 30 mg tablet,extended release 24 hr 30 mg PO DAILY Blood Pressure 07/13/24
metoprolol succinate 25 mg tablet,extended release 24 hr 25 mg PO DAILY Heart Disease/Condition 07/13/24
simvastatin 40 mg tablet 40 mg PO HS High Cholesterol 07/13/24
dexamethasone 2 mg tablet 2 mg PO TID #21 tabs 07/15/24
levetiracetam 500 mg tablet 500 mg PO BID #60 tabs 07/15/24
Home Medication Changes
Keppra and Decadron imitated
Pending Results: No
--- NOTE | 2024-07-15 13:29 | PN.CDI ---
CDI
- -
CDI:
Physician Documentation Request
Admit Date: 07/13/24 16:46
Dear Doctor Sindi,
Clinical Indicators:
Patient admitted with focal epilepsy; PMH includes right parietal and temporal mass.
Brain MRI, 'There are 4 extra-axial, enhancing lesions which are likely meningiomas. The largest measures 3.1 x 2.9 x 1.8 cm along the right anterior temporal fossa and demonstrates mass effect on adjacent anterior right temporal lobe. The
additional lesions do not demonstrate significant mass effect.'
Neurology consult ordered.
Neurology PN, '-Dexamethasone 2 mg TID for 1 week...'
Based on the above, could you clarify in the progress notes, the appropriate diagnosis, if significant, that supports the above abnormalities and additional evaluation, monitoring and/or treatment rendered:
Mass effect with cerebral compression
Mass effect is not clinically significant
Other, please specify
Use of terms such as suspected, likely, concern for, or probable (associated with a specific diagnosis that is being evaluated, monitored, or treated as if it exists) are acceptable and can be coded in the inpatient setting, when documented at the
time of discharge.
Thank you,
Petra Haas RN BSN
CDI Specialist
available via tiger text
Please use your independent medical judgment in providing your response.
== END 2024-07-15 15:01 | disposition home health service (06) | DRG 100 ==
LOC: 4 WEST ACU 16:46
PROVIDERS: Physician Assistant Medical; ADMITTING PHYSICIAN Internal Medicine; ATTENDING PHYSICIAN Internal Medicine; CONSULT PHYSICIAN Psychiatry & Neurology Neurology; EMERGENCY PHYSICIAN Student in an Organized Health Care Education/Training Program; FAMILY PHYSICIAN Family Medicine
DX: G40.109 Localization-related (focal) (partial) symptomatic epilepsy and epileptic syndromes with simple partial seizures, not intractable, without status epilepticus (principal); G92.9 Unspecified toxic encephalopathy; G93.5 Compression of brain; F02.811 Dementia in other diseases classified elsewhere, unspecified severity, with agitation; I25.10 Atherosclerotic heart disease of native coronary artery without angina pectoris; Z95.5 Presence of coronary angioplasty implant and graft; I10 Essential (primary) hypertension; E78.5 Hyperlipidemia, unspecified; G30.9 Alzheimer's disease, unspecified; D32.0 Benign neoplasm of cerebral meninges; G93.89 Other specified disorders of brain; R41.89 Other symptoms and signs involving cognitive functions and awareness
CPT/HCPCS: 70450; 70553; 71046; 74230; 80048; 80053; 81003; 82550; 82962; 83735; 84484; 85025; 85027; 85610; 85730; 87811; 92526; 92610; 92611; 93005; 95816; 96361; 96374; 96375; 97116; 97163; 97167; 99291; A9575

== ENCOUNTER 2024-07-23 14:38 | Emergency (ER) | payer OTHER, SELFPAY ==
[2024-07-23 14:44] VITALS: BP 189/105
[2024-07-23 14:46] VITALS: BP 189/105
[2024-07-23 15:22] LABS: % Basophils 0.1 % (0-2); % Eosinophils 0.1 % (0-6); % Immature Granulocytes 0.8 % (0-0.5); % Lymphocytes 6.9 % (20.5-51.1); % Monocytes 4.5 % (1.7-9.3); % Neutrophils 87.6 % (42.2-75.2); Absolute Immature Granulocytes 0.1 10^3/uL (0-0.05); Absolute Lymphocytes 0.7 10^3/uL (1.2-3.4); Absolute Monocytes 0.5 10^3/uL (0.1-0.6); Absolute Neutrophils 8.9 10^3/uL (1.4-6.5); Hematocrit 33.3 % (39.0-52.0); Hemoglobin 11.1 g/dL (13.0-18.0); Mean Corp Hgb Conc. 33.3 g/dL (33.0-37.0); Mean Corpuscular Hgb 27.5 pg (27.0-31.0); Mean Corpuscular Volume 82.4 fL (80.0-94.0); Mean Platelet Volume 10.3 fL (7.4-10.4); Nucleated Red Blood Cells % 0 % (-); Platelet Count 219 10^3/uL (130-400); Red Blood Cell Count 4.04 10^6/uL (4.70-6.10); White Blood Cell Count 10.1 10^3/uL (4.8-10.8)
[2024-07-23 15:30] LABS: ALT (SGPT) 49 U/L (0-50); AST (SGOT) 38 U/L (17-59); Albumin 3.8 g/dl (3.5-5.0); Alkaline Phosphatase 65 U/L (38-126); Blood Urea Nitrogen 39 mg/dl (9-20); Calcium 8.9 mg/dl (8.4-10.2); Carbon Dioxide 26 mmol/L (22-30); Chloride 101 mmol/L (98-107); Glucose 89 mg/dl (70-99); Potassium 4.9 mmol/L (3.5-5.1); Sodium 137 mmol/L (135-145); Total Bilirubin 0.3 mg/dl (0.2-1.3); Total Protein 6.4 g/dl (6.3-8.2); eGFR > 60.00
[2024-07-23 15:57] VITALS: BP 187/106
[2024-07-23 16:00] VITALS: BP 176/99
[2024-07-23] MEDS: NSS 1000 IV (16:43)
[2024-07-23] MEDS: LAMICTAL 25 MG PO (16:47)
[2024-07-23 17:00] VITALS: BP 188/96
--- NOTE | 2024-07-23 17:54 | ED.GENMED ---
History of Present Illness
General
Chief Complaint: Change in Mental Status
Time Seen by Provider: 07/23/24 14:47
History of Present Illness
History of Present Illness:
89-year-old male presents to the emergency department from [facility] due to increased lethargy. He was recently mid to this hospital for new onset seizures at which time he was also found to have newly diagnosed meningiomas, was started on
Keppra during the hospitalization. His daughter is worried that he has been fatigued since starting Keppra. He was apparently also noted to have significant bradycardia for nursing facility staff. While en route to the emergency department was
administered 1 mg of IV atropine by EMS with improvement in heart rate. On arrival the patient offers no organic complaints
Review of Systems
Review of Systems
Allergies reviewed?: Yes
All Other Systems: ROS reviewed and negative except as documented in HPI and ROS
Phy Exam
Physical Exam
Physical Exam:
GEN: Well appearing, NAD, WDWN
Eyes: PERRLA, EOMs intact, no scleral icterus
HENT: NCAT, oral mucosa moist
Lungs: CTAB, no wheezes, rales, rhonchi, normal chest wall excursion
Cardiac: RRR, no M/R/G, no peripheral edema. Radial pulses 2+ bilat
Abdomen: S, NT, ND, NABS, no masses or hepatosplenomegaly
Neuro: AO x 2, moves all extremities freely
MSK: No gross deformity or ecchymosis. No edema. No digital clubbing
Skin: No rashes, petechiae. Normal color, no pallor or jaundice.
Psych: Calm, cooperative, proper hygiene
Course
Orders/Labs/Results
Orders:
Orders
07/23/24 14:58
CT Head W/o Iv Contrast Urgent
Comment:
Reason For Exam: AMS
07/23/24 15:06
Complete Blood Count/With Diff Urgent
Comprehensive Metabolic Panel Urgent
07/23/24 16:11
0.9% Sodium Chloride 1000 ml [Nss] 1,000 ml IV BOLUS
07/23/24 16:39
Lamotrigine [Lamictal] 25 mg PO NOW STA
07/23/24 18:01
Lidocaine 2% [Lidocaine Uro-Jet 2%] 1 syringe .ROUTE .STK-MED ONE
07/23/24 18:05
Lidocaine 2% [Lidocaine Uro-Jet 2%] 1 syringe TOPICAL NOW STA
07/23/24 18:29
Urinalysis Reflex To Culture Urgent
Date Specimen was Collected: 07/23/24
Time Specimen was Collected: 18:29
Urine Microscopic Reflex Cult Urgent
07/23/24 18:47
Straight cath- Treatment ONCE
Abnormal Lab Results
07/23/24 07/23/24
15:06 18:29
RBC 4.04 L 10^6/uL
(4.70-6.10)
Hgb 11.1 L g/dL
(13.0-18.0)
Hct 33.3 L %
(39.0-52.0)
RDW 15.0 H %
(11.5-14.5)
Abs Immat Gran (auto) 0.1 H 10^3/uL
(0-0.05)
Absolute Neuts (auto) 8.9 H 10^3/uL
(1.4-6.5)
Absolute Lymphs (auto) 0.7 L 10^3/uL
(1.2-3.4)
Immature Gran % 0.8 H %
(0-0.5)
Neutrophils % 87.6 H %
(42.2-75.2)
Lymphocytes % 6.9 L %
(20.5-51.1)
BUN 39 H mg/dl
(9-20)
Ur Occult Blood Reflex 4+ A
(Negative)
Urine RBC >100 A /HPF
(0-2)
Urine Bacteria (Reflex) Few A
(Negative)
07/23/24 15:06
07/23/24 15:06
Vital Signs
Initial and Last Documented VS:
Initial Vital Signs
BP
189/105
07/23/24 14:44
Last Documented Vital Signs
Temp Pulse Resp BP Pulse Ox
97.9 F 60 21 150/94 98
07/23/24 14:46 07/23/24 18:45 07/23/24 18:45 07/23/24 18:43 07/23/24 17:45
MDM/Problems Addressed
MDM/Problems Addressed:
89 yo male presenting with persistent fatigue, reportedly since initiating Keppra. CTH obtained due to known intracranial masses to r/o hemorrhage, this was negative. Labs reassuring, UA not c/w UTI (large RBC likely traumatic due to difficult
straight cath). I discussed with neurology we will start the patient on lamotrigine as it is less sedating and wean him off of levetiracetam. Unfortunately did have urinary retention likely a product of prehospital atropine and required straight
cath for bladder drainage, additionally was hypertensive for Emergency Department stay, I suspect this is also a product of atropine. Telemetry monitoring showed no evidence of significant bradycardia throughout ED stay. Stable for discharge back
to SNF. Per family was at baseline mental status throughout ED evaluation
*Critical Care Note
Total Time (30-74mins, 75-104mins- exclusive of procedures): Not Applicable
ED Attending Note
-
Portions of this chart may have been created with voice recognition software.� Occasional wrong word or��sound alike� substitutions may have occurred due to the inherent limitations of voice recognition software.
Discharge Plan
Departure
Patient Disposition: Home (Routine Discharge)
Date of Disposition: 07/23/24
Time of Disposition: 18:52
Patient with high blood pressure during this ER visit?: Yes
Discharge Problem:
Lethargy
Instructions: Altered Mental Status (DC)
Prescriptions:
New
lamotrigine 25 mg tablet
25 mg PO BID Qty: 60 0RF
No Action
donepezil 10 mg tablet
10 mg PO HS
isosorbide mononitrate 30 mg tablet extended release 24 hr
30 mg PO DAILY
simvastatin 40 mg tablet
40 mg PO HS
metoprolol succinate 25 mg tablet extended release 24 hr
25 mg PO DAILY
levetiracetam 500 mg Tablet
500 mg PO BID Qty: 60 0RF
dexamethasone 2 mg Tablet
2 mg PO TID Qty: 21 0RF
diclofenac potassium 50 mg Tablet
50 mg PO TIDPRN PRN (Reason: MILD PAIN)
aspirin 81 mg Tablet,Chewable
81 mg PO DAILY
Referrals:
Eulalio Martinez MD [Active] -
Doris Mohan DO [Family Provider] -
Activity Restrictions/Additional Instructions:
Due to fatigue, we will switch levetiracetam to lamotrigine. Lamotrigine will be started at 25mg twice daily; the levetiracetam will be weaned off. Please decrease to 250mg twice daily for the next week, then call the neurology office for follow up
instructions
Additionally, all PO meds should be administered in applesauce due to dysphagia
Interventions
Interventions:
*Risk Screen - Suicide Last Done: 07/23/24 14:50
*Neglect/Abuse Screening Last Done: 07/23/24 20:02
ED- Fall Risk Assessment Last Done: 07/23/24 20:02
*ED COVID-19 Vaccine History Last Done: 07/23/24 14:59
*Nursing Disposition Last Done: 07/23/24 20:02
ED- Neurological Assessment Last Done: 07/23/24 15:13
Discharge Date and Time
Discharge Date/Time: 07/23/24 20:03
Print Language: MONGOLIAN
[2024-07-23] MEDS: LIDOCAINE URO-JET 2% 1 SYRINGE TOPICAL (18:05)
[2024-07-23 18:43] VITALS: BP 150/94
[2024-07-23 18:58] LABS: Urine Albumin Trace (Neg - Trace); Urine Bilirubin Negative (Negative); Urine Character Clear (Clear); Urine Color Yellow; Urine Glucose Negative (Negative); Urine Ketone Negative (Negative); Urine Leukocyte Negative (Negative); Urine Nitrite Negative (Negative); Urine Occult Blood 4+ (Negative); Urine Urobilinogen Negative (Neg - 1+)
[2024-07-23 19:02] LABS: Urine Bacteria Few (Negative); Urine Red Blood Cell >100 /HPF (0-2); Urine White Cell 0-2 /HPF (0-5)
== END 2024-07-23 20:03 ==
LOC: EMR 14:38
PROVIDERS: Physician Assistant; EMERGENCY PHYSICIAN Emergency Medicine; FAMILY PHYSICIAN Family Medicine
DX: R53.83 Other fatigue (principal); D32.0 Benign neoplasm of cerebral meninges; R33.9 Retention of urine, unspecified; Z79.899 Other long term (current) drug therapy
CPT/HCPCS: 96360; 99284; 70450; 80053; 81003; 81015; 85025